=== PATIENT | male | born 1950 | race Caucasian/White ===

== ENCOUNTER 2017-11-04 09:33 | Emergency (ER) | payer MEDICARE, BC ==
[2017-11-04] MEDS ORDERED: Sodium Chloride 0.9% 10 ML Syringe FLUSH PRN (09:42)
[2017-11-04] MEDS ORDERED: Aspirin 81 MG Tab.Chew PO ONE (09:42)
--- NOTE | 2017-11-04 09:50 | EDM.PDOC ---
ED HPI GENERAL MEDICAL PROBLEM - General Chief Complaint: Chest Pain Stated Complaint: HIGH BP/CHEST PAIN Time Seen by Provider: 11/04/17 09:37 Source of Information: Reports: Patient History Limitations: Reports: No Limitations - History of Present Illness INITIAL COMMENTS - FREE TEXT/NARRATIVE: The patient presents with chest tightness. This started yesterday. He says it comes and goes. He has no shortness of breath with it. He was nauseated today. He has no fever, chills, cough, or abdominal pain. He has no history of heart problems. He does have a family history of heart problems. He says taking a deep breath makes it worse. He has no history of diabetes or hypercholesterolemia. He does have a history of HTN for which he is being treated. He does not smoke. Onset: Gradual Duration: Day(s): (Yesterday) Location: Reports: Chest Quality: Reports: Other (Tightness) Severity: Mild Improves with: Reports: None Worsens with: Reports: Breathing Associated Symptoms: Reports: Chest Pain. Denies: Cough, Diaphoresis, Fever/ Chills, Headaches, Nausea/Vomiting, Shortness of Breath Mid-Sternal Chest Pain Score (Numeric/FACES): 2 - Related Data Allergies Allergy/AdvReac Type Severity Reaction Status Date / Time No Known Allergies Allergy Verified 11/04/17 09:46 Home Meds: Home Meds Aspirin [Halfprin] 81 mg PO DAILY 11/04/17 [History] Losartan/Hydrochlorothiazide [Hyzaar 100-25 Tablet] 1 tab PO DAILY 11/04/17 [ History] Pravastatin Sodium [Pravastatin (Pravachol)] 20 mg PO DAILY 11/04/17 [History] Vit C/Vit E Ac/Lut/Mineral 1 [Prosight with Lutein] 1 each PO DAILY 11/04/17 [ History] amLODIPine Besylate [Norvasc] 2.5 mg PO DAILY 11/04/17 [History] Past Medical History Cardiovascular History: Reports: High Cholesterol, Hypertension Musculoskeletal History: Reports: Back Pain, Chronic, Other (See Below) Other Musculoskeletal History: pt has been seeing a pain specialist for injections - Infectious Disease History Infectious Disease History: Reports: Chicken Pox, Measles - Past Surgical History GI Surgical History: Reports: Hernia, Inguinal, Hernia Repair/Other Social & Family History - Living Situation & Occupation Living situation: Reports: Occupation: Employed ED ROS GENERAL - Review of Systems Review Of Systems: See Below Constitutional: Reports: No Symptoms HEENT: Reports: No Symptoms Respiratory: Reports: No Symptoms Cardiovascular: Reports: Chest Pain Endocrine: Reports: No Symptoms GI/Abdominal: Reports: Nausea. Denies: Abdominal Pain, Diarrhea, Vomiting : Reports: No Symptoms Musculoskeletal: Reports: No Symptoms ED EXAM, GENERAL - Physical Exam Exam: See Below Exam Limited By: No Limitations General Appearance: Alert, No Apparent Distress Ears: Normal External Exam Nose: Normal Inspection Head: Atraumatic, Normocephalic Neck: Normal Inspection Respiratory/Chest: No Respiratory Distress, Lungs Clear, Normal Breath Sounds Cardiovascular: Regular Rate, Rhythm, No Edema, No Murmur GI/Abdominal: Soft, Non-Tender, No Organomegaly, No Mass Back Exam: Normal Inspection Extremities: Normal Inspection EKG INTERPRETATION EKG Date: 11/04/17 Time: 09:38 Rhythm: NSR Rate (Beats/Min): 80 [place]: Normal P-Wave: Present QRS: Normal ST-T: Other (Flattened T waves in the inferior leads) QT: Normal [place]/PQ Interval: 1st degree HB Course - Vital Signs Last Recorded V/S: Last Vital Signs Temp 97.2 F 11/04/17 09:39 Pulse 84 11/04/17 09:39 Resp 15 11/04/17 09:39 BP 152/89 H 11/04/17 09:39 Pulse Ox 99 11/04/17 09:39 - Orders/Labs/Meds Orders: Active Orders 24 hr Category Date Time Status Cardiac Monitoring [RC] . DIRECTED Care 11/04/17 09:42 Active EKG Documentation Completion [RC] STAT Care 11/04/17 09:43 Active Oxygen Therapy [RC] PRN Care 11/04/17 09:42 Active Peripheral IV Care [RC] . DIRECTED Care 11/04/17 09:43 Active Chest 1V Frontal [CR] Stat Exams 11/04/17 09:43 Taken Sodium Chloride 0.9% [Saline Flush] Med 11/04/17 09:42 Active 10 ml FLUSH ASDIRECTED PRN Peripheral IV Insertion Adult [OM.PC] Stat Oth 11/04/17 09:42 Ordered Medication Orders Sodium Chloride (Saline Flush) 10 ml FLUSH ASDIRECTED PRN PRN Reason: Keep Vein Open Last Admin: 11/04/17 09:58 Dose: 10 ml Labs: Laboratory Tests 11/04/17 11/04/17 11/04/17 Range/Units 09:45 09:45 09:45 WBC 6.32 (4.23-9.07) K/mm3 RBC 4.85 (4.63-6.08) M/mm3 Hgb 13.9 (13.7-17.5) gm/L Hct 41.7 (40.1-51.0) % MCV 86.0 (79.0-92.2) fl MCH 28.7 (25.7-32.2) pg MCHC 33.3 (32.2-35.5) g/dl RDW Std Deviation 42.6 (35.1-43.9) fL Plt Count 283 (163-337) K/mm3 MPV 9.8 (9.4-12.3) fl Neut % (Auto) 61.9 (34.0-67.9) % Lymph % (Auto) 22.9 (21.8-53.1) % [place] % (Auto) 10.9 (5.3-12.2) % Eos % (Auto) 3.5 (0.8-7.0) Baso % (Auto) 0.6 (0.1-1.2) % Neut # (Auto) 3.91 (1.78-5.38) K/mm3 Lymph # (Auto) 1.45 (1.32-3.57) K/mm3 [place] # (Auto) 0.69 (0.30-0.82) K/mm3 Eos # (Auto) 0.22 (0.04-0.54) K/mm3 Baso # (Auto) 0.04 (0.01-0.08) K/mm3 D-Dimer, Quantitative 0.38 (0.19-0.50) mg/L Sodium 140 (136-145) mEq/L Potassium 3.6 (3.5-5.1) mEq/L Chloride 105 (98-107) mEq/L Carbon Dioxide 29 (21-32) mEq/L Anion Gap 9.6 (5-15) BUN 17 (7-18) mg/dL Creatinine 1.0 (0.7-1.3) mg/dL Est Cr Clr Drug Dosing 82.12 mL/min Estimated GFR (MDRD) > 60 (>60) mL/min BUN/Creatinine Ratio 17.0 (14-18) Glucose 103 (80-115) mg/dL Calcium 9.7 (8.5-10.1) mg/dL Total Bilirubin 0.6 (0.2-1.0) mg/dL AST 16 (15-37) U/L ALT 27 (16-63) U/L Alkaline Phosphatase 83 (46-116) U/L Troponin I < 0.017 (0.00-0.056) ng/mL Total Protein 7.4 (6.4-8.2) g/dl Albumin 3.8 (3.4-5.0) g/dl Globulin 3.6 gm/dL Albumin/Globulin Ratio 1.1 (1-2) Meds: Medications Generic Name Dose Route Start Last Admin Trade Name Freq PRN Reason Stop Dose Admin Sodium Chloride 10 ml 11/04/17 09:42 11/04/17 09:58 Saline Flush FLUSH 10 ml ASDIRECTED PRN Administration Keep Vein Open Discontinued Medications Generic Name Dose Route Start Last Admin Trade Name Freq PRN Reason Stop Dose Admin Aspirin 324 mg 11/04/17 09:42 11/04/17 09:58 Aspirin PO 11/04/17 09:43 324 mg ONETIME ONE Administration - Re-Assessments/Exams Free Text/Narrative Re-Assessment/Exam: 11/04/17 09:52 I ordered an IV saline lock, EKG, CXR, labs and aspirin. 11/04/17 11:19 His EKG shows a NSR with a 1st degree HB and no acute changes. His CBC and CMP look good. His troponin is negative. He feels better. It appears this is pleurisy. His heart looks good. Departure - Departure Time of Disposition: 11:25 Disposition: Home, Self-Care 01 Condition: Good Clinical Impression: Atypical chest pain Referrals: Daniel San MD [Primary Care Provider] - 1 Week Forms: ED Department Discharge Additional Instructions: Take aspirin or motrin for the pain. Follow up with Dr Pritchett in 1 week. Please return if you are worse. - My Orders Last 24 Hours: My Active Orders 11/04/17 09:42 Cardiac Monitoring [RC] . DIRECTED Oxygen Therapy [RC] PRN Sodium Chloride 0.9% [Saline Flush] 10 ml FLUSH ASDIRECTED PRN Peripheral IV Insertion Adult [OM.PC] Stat 11/04/17 09:43 EKG Documentation Completion [RC] STAT Peripheral IV Care [RC] . DIRECTED Chest 1V Frontal [CR] Stat - Assessment/Plan Last 24 Hours: My Active Orders 11/04/17 09:42 Cardiac Monitoring [RC] . DIRECTED Oxygen Therapy [RC] PRN Sodium Chloride 0.9% [Saline Flush] 10 ml FLUSH ASDIRECTED PRN Peripheral IV Insertion Adult [OM.PC] Stat 11/04/17 09:43 EKG Documentation Completion [RC] STAT Peripheral IV Care [RC] . DIRECTED Chest 1V Frontal [CR] Stat
[2017-11-04 11:36] VITALS: BP 133/79
--- NOTE | 2017-11-06 11:27 | CR ---
Chest: Portable view of the chest was obtained. Comparison: No prior chest x-ray. Blunting of the right costophrenic angle is seen. Without old study uncertain if this is chronic or due to mild atelectasis. Lungs otherwise are clear. Right hemidiaphragm is elevated which is most likely chronic. No acute parenchymal densities are seen. No acute bony abnormality is seen. Slight scoliosis and degenerative spurring is noted within the spine. Impression: 1. Findings felt to be incidental as described above. Nothing acute is suspected. Diagnostic code #2
== END 2017-11-04 11:34 | disposition home or self-care (01) ==
LOC: JD.ED 09:33
DX: R07.89 Other chest pain (principal); E78.00 Pure hypercholesterolemia, unspecified; I10 Essential (primary) hypertension; Z79.82 Long term (current) use of aspirin; Z79.899 Other long term (current) drug therapy
CPT/HCPCS: 36415; 71045; 80053; 84484; 85025; 85379; 93005; 99285; A9270; J7050; 93010; 99284

== ENCOUNTER 2020-08-13 07:25 | Day surgery (SDC) | payer MEDICARE, BC ==
[2020-08-13] MEDS: Polymyxin B/Trimethoprim 10 ML Bottle EYERT SCH ×4 (07:44→09:03)
[2020-08-13] MEDS: Brimonidine 0.2% Ophth Soln 5 ML Bottle EYERT SCH ×4 (07:48→09:03)
[2020-08-13] MEDS: Phenylephrine 2.5% Ophth Soln 2 ML Bot EYERT SCH ×6 (07:51→08:44)
--- NOTE | 2020-08-13 07:52 | PCM.PREANE ---
Preanesthetic Assessment - Procedure Proposed Procedure: cataract extraction right eye - Anesthesia/Transfusion/Family Hx Anesthesia History: Prior Anesthesia Without Reaction Family History of Anesthesia Reaction: No Transfusion History: No Prior Transfusion(s) - Review of Systems General: No Symptoms Pulmonary: No Symptoms Cardiovascular: No Symptoms Gastrointestinal: No Symptoms Neurological: No Symptoms Other: Reports: None - Physical Assessment NPO Status Date: 08/12/20 NPO Status Time: 00:00 Height: 1.85 m Weight: 117.934 kg ASA Class: 2 Mental Status: Alert & Oriented x3 Airway Class: Mallampati = 1 Dentition: Reports: Normal Dentition Thyro-Mental Finger Breadths: 3 Mouth Opening Finger Breadths: 3 ROM/Head Extension: Full Lungs: Clear to Auscultation, Normal Respiratory Effort Cardiovascular: Regular Rate, Regular Rhythm - Allergies Allergies/Adverse Reactions: Allergies Allergy/AdvReac Type Severity Reaction Status Date / Time No Known Allergies Allergy Verified 08/12/20 12:50 - Anesthesia Plan Pre-Op Medication Ordered: None - Acknowledgements Anesthesia Type Planned: MAC Pt an Appropriate Candidate for the Planned Anesthesia: Yes Alternatives and Risks of Anesthesia Discussed w Pt/Guardian: Yes Pt/Guardian Understands and Agrees with Anesthesia Plan: Yes PreAnesthesia Questionnaire Cardiovascular History: Reports: High Cholesterol, Hypertension Musculoskeletal History: Reports: Back Pain, Chronic, Other (See Below) Other Musculoskeletal History: pt has been seeing a pain specialist for injections - Infectious Disease History Infectious Disease History: Reports: Chicken Pox, Measles - Past Surgical History GI Surgical History: Reports: Hernia, Inguinal, Hernia Repair/Other - HOME MEDS Home Medications: Home Meds Aspirin [Halfprin] 81 mg PO DAILY 11/04/17 [History] Losartan/Hydrochlorothiazide [Hyzaar 100-25 Tablet] 1 tab PO DAILY 11/04/17 [History] Pravastatin Sodium [Pravastatin (Pravachol)] 20 mg PO DAILY 11/04/17 [History] Vit C/Vit E/Lutein/Minerals 1 [Prosight with Lutein] 1 each PO DAILY 11/04/17 [History] amLODIPine Besylate [Norvasc] 2.5 mg PO DAILY 11/04/17 [History] - CURRENT (IN HOUSE) MEDS Current Meds: Current Medications Brimonidine Tartrate (Brimonidine 0.2% Ophth Soln 5 Ml Bottle) 0 ml EYERT ASDIRECTED TAMIKO Stop: 08/13/20 18:00 Last Admin: 08/13/20 07:48 Dose: 1 drop Documented by: Cefuroxime Sodium (Cefuroxime 10 Mg/Ml Syringe) 0 mg EYERT ASDIRECTED TAMIKO Stop: 08/13/20 18:00 Lidocaine HCl (Lidocaine 1% Pf 2 Ml Sdv) 0 ml INJECT ASDIRECTED TAMIKO Stop: 08/13/20 18:00 Phenylephrine HCl (Phenylephrine 2.5% Ophth Soln 2 Ml Bot) 0 ml EYERT ASDIRECTED TAMIKO Stop: 08/13/20 18:00 Pilocarpine HCl (Pilocarpine 4% Ophth Soln 15 Ml Bot) 0 ml EYERT ASDIRECTED TAMIKO Stop: 08/13/20 18:00 Polymyxin/Trimethoprim Sulfate (Polymyxin B/Trimethoprim 10 Ml Bottle) 0 ml EYERT ASDIRECTED TAMIKO Stop: 08/13/20 18:00 Last Admin: 08/13/20 07:44 Dose: 1 drop Documented by: Tetracaine HCl (Tetracaine Hcl/Pf 0.5% 4 Ml Bottle) 0 ml EYEBOTH ASDIRECTED TAMIKO Stop: 08/13/20 18:00 Tropicamide (Tropicamide 1% Ophth Soln 15 Ml Bottle) 0 ml EYERT ASDIRECTED TAMIKO Stop: 08/13/20 18:00
[2020-08-13] MEDS: Tropicamide 1% Ophth Soln 15 ML Bottle EYERT SCH ×4 (07:54→08:25)
[2020-08-13] MEDS: Tetracaine HCl/PF 0.5% 4 ML Bottle EYEBOTH SCH ×5 (08:27→08:49)
[2020-08-13] MEDS: Lidocaine 1% PF 2 ML SDV INJECT SCH ×2 (08:27→08:50)
[2020-08-13] MEDS: Pilocarpine 4% Ophth Soln 15 ML Bot EYERT SCH ×2 (08:28→09:03)
[2020-08-13] MEDS: Cefuroxime 10 MG/ML SYRINGE EYERT SCH ×2 (08:28→09:02)
--- NOTE | 2020-08-13 09:07 | PCM48HPAN ---
Post Anesthesia Note - EVALUATION WITHIN 48HRS OF ANESTHETIC Vital Signs in Normal Range: Yes Patient Participated in Evaluation: Yes Respiratory Function Stable: Yes Airway Patent: Yes Cardiovascular Function Stable: Yes Hydration Status Stable: Yes Pain Control Satisfactory: Yes Nausea and Vomiting Control Satisfactory: Yes Mental Status Recovered: Yes Vital Signs: Last Vital Signs Temp 36.8 C 08/13/20 07:20 Pulse 91 08/13/20 07:20 Resp 20 08/13/20 07:20 BP 166/83 H 08/13/20 07:20 Pulse Ox 97 08/13/20 07:20
[2020-08-13 09:33] VITALS: BP 150/84; PULSE 77
== END 2020-08-13 09:13 | disposition home or self-care (01) ==
LOC: JD.SDS 07:25
PROVIDERS: ATTEND Ophthalmology
DX: H25.813 Combined forms of age-related cataract, bilateral (principal); H17.12 Central corneal opacity, left eye; D31.32 Benign neoplasm of left choroid; H35.372 Puckering of macula, left eye; H50.112 Monocular exotropia, left eye; H02.831 Dermatochalasis of right upper eyelid; H02.834 Dermatochalasis of left upper eyelid; H16.223 Keratoconjunctivitis sicca, not specified as Sjogren's, bilateral; H57.813 Brow ptosis, bilateral; I10 Essential (primary) hypertension; E78.00 Pure hypercholesterolemia, unspecified; Z98.890 Other specified postprocedural states
CPT/HCPCS: 66984; J0697; C1780

== ENCOUNTER 2020-09-15 09:59 | Day surgery (SDC) | payer MEDICARE, BC ==
[~2020-09-15 09:59] MED LIST: Cefuroxime 10 MG/ML SYRINGE EYELF SCH; Lidocaine 1% PF 2 ML SDV INJECT SCH; Pilocarpine 4% Ophth Soln 15 ML Bot EYELF SCH
[2020-09-15] MEDS: Polymyxin B/Trimethoprim 10 ML Bottle EYELF SCH ×3 (10:27→12:08)
[2020-09-15] MEDS: Brimonidine 0.2% Ophth Soln 5 ML Bottle EYELF SCH ×3 (10:30→12:08)
[2020-09-15] MEDS: Phenylephrine 2.5% Ophth Soln 2 ML Bot EYELF SCH ×5 (10:34→11:49)
[2020-09-15] MEDS: Tropicamide 1% Ophth Soln 15 ML Bottle EYELF SCH ×4 (10:38→11:26)
--- NOTE | 2020-09-15 10:58 | PCM.PREANE ---
Preanesthetic Assessment - Procedure Proposed Procedure: Left Eye Cataract Extraction with IOL - Anesthesia/Transfusion/Family Hx Anesthesia History: Prior Anesthesia Without Reaction Family History of Anesthesia Reaction: No Transfusion History: No Prior Transfusion(s) - Review of Systems General: No Symptoms Pulmonary: No Symptoms Cardiovascular: No Symptoms Gastrointestinal: No Symptoms Neurological: Pre-Existing Deficit (Back surgery, continued pain in right leg. ) Other: Reports: None - Physical Assessment NPO Status Date: 09/14/20 NPO Status Time: 22:00 Height: 1.85 m Weight: 117.934 kg ASA Class: 2 Mental Status: Alert & Oriented x3 Airway Class: Mallampati = 1 Dentition: Reports: Normal Dentition, [place] Thyro-Mental Finger Breadths: 3 Mouth Opening Finger Breadths: 3 ROM/Head Extension: Full Lungs: Clear to Auscultation, Normal Respiratory Effort Cardiovascular: Regular Rate, Regular Rhythm - Allergies Allergies/Adverse Reactions: Allergies Allergy/AdvReac Type Severity Reaction Status Date / Time No Known Allergies Allergy Verified 09/14/20 15:42 - Acknowledgements Anesthesia Type Planned: MAC Pt an Appropriate Candidate for the Planned Anesthesia: Yes Alternatives and Risks of Anesthesia Discussed w Pt/Guardian: Yes Pt/Guardian Understands and Agrees with Anesthesia Plan: Yes PreAnesthesia Questionnaire Cardiovascular History: Reports: High Cholesterol, Hypertension Musculoskeletal History: Reports: Back Pain, Chronic, Other (See Below) Other Musculoskeletal History: pt has been seeing a pain specialist for injections - Infectious Disease History Infectious Disease History: Reports: Chicken Pox, Measles - Past Surgical History GI Surgical History: Reports: Hernia, Inguinal, Hernia Repair/Other - HOME MEDS Home Medications: Home Meds Aspirin [Halfprin] 81 mg PO DAILY 11/04/17 [History] Losartan/Hydrochlorothiazide [Hyzaar 100-25 Tablet] 1 tab PO DAILY 11/04/17 [History] Pravastatin Sodium [Pravastatin (Pravachol)] 20 mg PO DAILY 11/04/17 [History] Vit C/Vit E/Lutein/Minerals 1 [Prosight with Lutein] 1 each PO DAILY 11/04/17 [History] amLODIPine Besylate [Norvasc] 2.5 mg PO DAILY 11/04/17 [History] - CURRENT (IN HOUSE) MEDS Current Meds: Current Medications Brimonidine Tartrate (Brimonidine 0.2% Oph Soln 5 Ml Bottle) 0 ml EYELF A SDIRECTED TAMIKO Stop: 09/15/20 18:00 Last Admin: 09/15/20 10:30 Dose: 1 drop Documented by: Cefuroxime Sodium (Cefuroxime 10 Mg/Ml Syringe) 0 mg EYELF ASDIRECTED TAMIKO Stop: 09/15/20 18:00 Lidocaine HCl (Lidocaine 1% Pf 2 Ml Sdv) 0 ml INJECT ASDIRECTED TAMIKO Stop: 09/15/20 18:00 Phenylephrine HCl (Phenylephrine 2.5% Ophth Soln 2 Ml Bot) 0 ml EYELF ASDIRECTED TAMIKO Stop: 09/15/20 18:00 Last Admin: 09/15/20 10:52 Dose: 1 drop Documented by: Pilocarpine HCl (Pilocarpine 4% Ophth Soln 15 Ml Bot) 0 ml EYELF ASDIRECTED TAMIKO Stop: 09/15/20 18:00 Polymyxin/Trimethoprim Sulfate (Polymyxin B/Trimethoprim 10 Ml Bottle) 0 ml EYELF ASDIRECTED TAMIKO Stop: 09/15/20 18:00 Last Admin: 09/15/20 10:27 Dose: 1 drop Documented by: Tetracaine HCl (Tetracaine Hcl/Pf 0.5% 4 Ml Bottle) 0 ml EYEBOTH ASDIRECTED TAMIKO Stop: 09/15/20 18:00 Tropicamide (Tropicamide 1% Ophth Soln 15 Ml Bottle) 0 ml EYELF ASDIRECTED TAMIKO Stop: 09/15/20 18:00 Last Admin: 09/15/20 10:48 Dose: 1 drop Documented by:
[2020-09-15] MEDS: Tetracaine HCl/PF 0.5% 4 ML Bottle EYEBOTH SCH ×2 (11:43→12:01)
--- NOTE | 2020-09-15 12:09 | PCM48HPAN ---
Post Anesthesia Note - EVALUATION WITHIN 48HRS OF ANESTHETIC Vital Signs in Normal Range: Yes Patient Participated in Evaluation: Yes Respiratory Function Stable: Yes Airway Patent: Yes Cardiovascular Function Stable: Yes Hydration Status Stable: Yes Pain Control Satisfactory: Yes Nausea and Vomiting Control Satisfactory: Yes Mental Status Recovered: Yes
[2020-09-15 12:25] VITALS: BP 143/85; PULSE 71
== END 2020-09-15 12:19 | disposition home or self-care (01) ==
LOC: JD.SDS 09:59
PROVIDERS: ATTEND Ophthalmology
DX: H25.812 Combined forms of age-related cataract, left eye (principal); E78.00 Pure hypercholesterolemia, unspecified; I10 Essential (primary) hypertension; Z98.890 Other specified postprocedural states; Z79.899 Other long term (current) drug therapy; Z79.82 Long term (current) use of aspirin
CPT/HCPCS: 66984; C1780; J0697

== ENCOUNTER 2021-04-21 00:29 | Emergency (ER) | payer MEDICARE, BC ==
--- NOTE | 2021-04-21 00:45 | EDM.PDOC ---
ED HPI GENERAL MEDICAL PROBLEM - General Chief Complaint: Chest Pain Stated Complaint: CHEST PAIN/HIGH BP Time Seen by Provider: 04/21/21 00:45 Source of Information: Reports: Patient History Limitations: Reports: No Limitations - History of Present Illness INITIAL COMMENTS - FREE TEXT/NARRATIVE: Patient is a 70-year-old male presenting with a chief complaint of palpitations. Patient reports over the past week he has had several episodes of chest pain. He states the chest pain lasted for a few seconds to a few minutes. It is located substernally and without radiation. He denies any shortness of breath with the symptoms and has not noticed any precipitating factors. They do seem to resolve spontaneously. Today, the patient had onset of palpitations which did not resolve. This is associated with some slight chest discomfort. Otherwise, he denies any dizziness, lightheadedness, shortness of breath, nausea, vomiting, recent illnesses. Chest Pain Score (Numeric/FACES): 4 - Related Data Allergies Allergy/AdvReac Type Severity Reaction Status Date / Time No Known Allergies Allergy Verified 04/21/21 00:52 Home Meds: Home Meds Aspirin [Halfprin] 81 mg PO DAILY 11/04/17 [History] Losartan/Hydrochlorothiazide [Hyzaar 100-25 Tablet] 1 tab PO DAILY 11/04/17 [History] Pravastatin Sodium [Pravastatin (Pravachol)] 20 mg PO DAILY 11/04/17 [History] Vit C/Vit E/Lutein/Minerals 1 [Prosight with Lutein] 1 each PO DAILY 11/04/17 [History] amLODIPine Besylate [Norvasc] 2.5 mg PO DAILY 11/04/17 [History] Diltiazem IR [Cardizem] 30 mg PO Q6H #28 tab 04/21/21 [Rx] Rivaroxaban [Xarelto] 20 mg PO DAILY #10 tablet 04/21/21 [Rx] Past Medical History Cardiovascular History: Reports: High Cholesterol, Hypertension Musculoskeletal History: Reports: Back Pain, Chronic, Other (See Below) Other Musculoskeletal History: pt has been seeing a pain specialist for injections - Infectious Disease History Infectious Disease History: Reports: Chicken Pox, Measles - Past Surgical History GI Surgical History: Reports: Hernia, Inguinal, Hernia Repair/Other Social & Family History - Family History Cardiac: Reports: [place] - Caffeine Use Caffeine Use: Reports: Soda - Living Situation & Occupation Living situation: Reports: Occupation: Employed ED ROS GENERAL - Review of Systems Review Of Systems: See Below Free Text/Narrative/Comment: In addition to that documented in the HPI above, the additional ROS was obtained: Constitutional: Denies fevers or chills Eyes: Denies vision changes ENMT: Denies sore throat CV: Per HPI Resp: Denies SOB GI: Denies vomiting or diarrhea : Denies painful urination MSK: Denies recent trauma Skin: Denies new rashes Neuro: Denies new numbness or tingling or weakness Endocrine: Denies unexpected weight loss Heme: Denies bleeding disorders ED EXAM, GENERAL - Physical Exam Exam: See Below Free Text/Narrative:: I have reviewed the triage vital signs Const: Well nourished, well developed, appears stated age Eyes: Pupils Equal and reactive to light bilaterally, no conjunctival injection HENT: No signs of trauma or swelling, Neck supple without meningismus CV: Tachycardia with irregular rhythm, well-perfused extremities RESP: Unlabored respiratory effort GI: soft, non-tender, non-distended, no masses MSK: No gross deformities appreciated Skin: Warm, dry. No rashes Neuro: Alert, cad designer II-XII grossly intact. Sensation and motor function of extremities grossly intact. Psych: Appropriate mood and affect. #1 Interpretation EKG Date: 04/21/21 Time: 00:35 Rhythm: A-Fib Rate (Beats/Min): 143 Harmony: Normal P-Wave: Absent QRS: Normal ST-T: Depressed (Slight ST depression in lateral leads) QT: Normal Comparison: Change From Previous EKG EKG Interpretation Comments: Atrial fibrillation with ST depression in lateral leads. Abnormal EKG Course - Vital Signs Last Recorded V/S: Last Vital Signs Temp 36.6 C 04/21/21 00:46 Pulse 108 H 04/21/21 03:46 Resp 18 04/21/21 03:46 BP 122/76 04/21/21 03:46 Pulse Ox 100 04/21/21 03:46 - Orders/Labs/Meds Orders: Active Orders 24 hr Category Date Time Status Chest 1V Frontal [CR] Stat Exams 04/21/21 00:41 Taken Labs: Laboratory Tests 04/21/21 04/21/21 04/21/21 Range/Units 00:40 00:40 00:40 WBC 8.16 (4.23-9.07) K/mm3 RBC 5.24 (4.63-6.08) M/mm3 Hgb 15.0 (13.7-17.5) gm/dl Hct 45.5 (40.1-51.0) % MCV 86.8 (79.0-92.2) fl MCH 28.6 (25.7-32.2) pg MCHC 33.0 (32.2-35.5) g/dl RDW Std Deviation 43.8 (35.1-43.9) fL Plt Count 298 (163-337) K/mm3 MPV 9.7 (9.4-12.3) fl Neut % (Auto) 41.8 (34.0-67.9) % Lymph % (Auto) 39.2 (21.8-53.1) % Josephine % (Auto) 13.4 H (5.3-12.2) % Eos % (Auto) 4.9 (0.8-7.0) Baso % (Auto) 0.6 (0.1-1.2) % Neut # (Auto) 3.41 (1.78-5.38) K/mm3 Lymph # (Auto) 3.20 (1.32-3.57) K/mm3 Josephine # (Auto) 1.09 H (0.30-0.82) K/mm3 Eos # (Auto) 0.40 (0.04-0.54) K/mm3 Baso # (Auto) 0.05 (0.01-0.08) K/mm3 PT 9.8 (9.7-12.0) SECONDS INR < 0.93 D-Dimer, Quantitative (0.19-0.50) mg/L Sodium 139 (136-145) mEq/L Potassium 3.2 L (3.5-5.1) mEq/L Chloride 101 (98-107) mEq/L Carbon Dioxide 32 (21-32) mEq/L Anion Gap 9.2 (5-15) BUN 18 (7-18) mg/dL Creatinine 1.0 (0.7-1.3) mg/dL Est Cr Clr Drug Dosing 78.79 mL/min Estimated GFR (MDRD) > 60 (>60) mL/min BUN/Creatinine Ratio 18.0 (14-18) Glucose 100 H (70-99) mg/dL Calcium 9.8 (8.5-10.1) mg/dL Total Bilirubin 0.4 (0.2-1.0) mg/dL AST 26 (15-37) U/L ALT 28 (16-63) U/L Alkaline Phosphatase 95 (46-116) U/L Troponin I < 0.017 (0.00-0.056) ng/mL NT-Pro-B Natriuret Pep (0-125) pg/mL Total Protein 7.8 (6.4-8.2) g/dl Albumin 4.2 (3.4-5.0) g/dl Globulin 3.6 gm/dL Albumin/Globulin Ratio 1.2 (1-2) 04/21/21 04/21/21 04/21/21 Range/Units 00:40 00:40 02:59 WBC (4.23-9.07) K/mm3 RBC (4.63-6.08) M/mm3 Hgb (13.7-17.5) gm/dl Hct (40.1-51.0) % MCV (79.0-92.2) fl MCH (25.7-32.2) pg MCHC (32.2-35.5) g/dl RDW Std Deviation (35.1-43.9) fL Plt Count (163-337) K/mm3 MPV (9.4-12.3) fl Neut % (Auto) (34.0-67.9) % Lymph % (Auto) (21.8-53.1) % Josephine % (Auto) (5.3-12.2) % Eos % (Auto) (0.8-7.0) Baso % (Auto) (0.1-1.2) % Neut # (Auto) (1.78-5.38) K/mm3 Lymph # (Auto) (1.32-3.57) K/mm3 Josephine # (Auto) (0.30-0.82) K/mm3 Eos # (Auto) (0.04-0.54) K/mm3 Baso # (Auto) (0.01-0.08) K/mm3 PT (9.7-12.0) SECONDS INR D-Dimer, Quantitative 0.35 (0.19-0.50) mg/L Sodium (136-145) mEq/L Potassium (3.5-5.1) mEq/L Chloride (98-107) mEq/L Carbon Dioxide (21-32) mEq/L Anion Gap (5-15) BUN (7-18) mg/dL Creatinine (0.7-1.3) mg/dL Est Cr Clr Drug Dosing mL/min Estimated GFR (MDRD) (>60) mL/min BUN/Creatinine Ratio (14-18) Glucose (70-99) mg/dL Calcium (8.5-10.1) mg/dL Total Bilirubin (0.2-1.0) mg/dL AST (15-37) U/L ALT (16-63) U/L Alkaline Phosphatase (46-116) U/L Troponin I < 0.017 (0.00-0.056) ng/mL NT-Pro-B Natriuret Pep 46 (0-125) pg/mL Total Protein (6.4-8.2) g/dl Albumin (3.4-5.0) g/dl Globulin gm/dL Albumin/Globulin Ratio (1-2) Meds: Medications Discontinued Medications Generic Name Dose Route Start Last Admin Trade Name Freq PRN Reason Stop Dose Admin Diltiazem HCl 30 mg 04/21/21 01:22 04/21/21 01:41 Diltiazem Ir 30 Mg Tab PO 04/21/21 01:23 30 mg ONETIME ONE Administration Diltiazem HCl 20 mg 04/21/21 01:22 04/21/21 01:40 Diltiazem 50 Mg/10 Ml Sdv IVPUSH 04/21/21 01:23 20 mg ONETIME ONE Administration Lactated Ringer's 1,000 mls @ 1,000 mls/hr 04/21/21 01:17 04/21/21 01:30 Ringers, Lactated IV 04/21/21 02:16 1,000 mls/hr .BOLUS ONE Administration Rivaroxaban 20 mg 04/21/21 01:22 04/21/21 01:41 Rivaroxaban 10 Mg Tab PO 04/21/21 01:23 20 mg ONETIME ONE Administration Departure - Departure Time of Disposition: 03:48 Disposition: Home, Self-Care 01 Clinical Impression: Atrial fibrillation Prescriptions: Diltiazem IR [Cardizem] 30 mg PO Q6H #28 tab Rivaroxaban [Xarelto] 20 mg PO DAILY #10 tablet Instructions: Bleeding Precautions When on Anticoagulant Therapy, Pediatric, Nonspecific Chest Pain, Adult, [id number], Atrial Fibrillation, [id number] Referrals: Daniel San MD [Primary Care Provider] - Forms: ED Department Discharge Sepsis Event Note (ED) - Focused Exam Vital Signs: Vital Signs Temp Pulse Resp BP Pulse Ox 04/21/21 03:46 108 H 18 122/76 100 04/21/21 00:46 36.6 C 148 H 16 120/88 97 - My Orders Last 24 Hours: My Active Orders 04/21/21 00:41 Chest 1V Frontal [CR] Stat - Assessment/Plan Last 24 Hours: My Active Orders 04/21/21 00:41 Chest 1V Frontal [CR] Stat Assessment:: Patient is a 70-year-old male presenting to the emergency room with a complaint of palpitations. On arrival, patient was found to be in atrial fibrillation with a rate in the 130s. He was otherwise hemodynamically stable. Due to the intermittent symptoms for the past 1 week, is elected to go with rate control as opposed to electrical cardioversion. Rate control was achieved with IV diltiazem as well as p.o. diltiazem. His heart rate improved nicely into the low 80s while maintaining a normal blood pressure. No evidence of significant electrolyte abnormality, PE, ACS in this patient. His initial EKG demonstrates some slight ST depression but this is likely rate dependent as repeat EKG once his rate control demonstrates no evidence of ischemic changes. I did recommend close follow-up with primary care and cardiology. In addition, patient has a [id number] score of 2 and will be initiated on Xarelto for anticoagulation purposes. All questions were addressed and answered. Patient agrees with plan of care.
[2021-04-21] MEDS ORDERED: Lactated Ringers 1,000 ML IV ONE (01:17)
[2021-04-21] MEDS ORDERED: Diltiazem IR 30 MG Tab PO ONE (01:22)
[2021-04-21] MEDS ORDERED: Rivaroxaban 10 MG Tab PO ONE (01:22)
[2021-04-21] MEDS ORDERED: Diltiazem 50 MG/10 ML SDV IVPUSH ONE (01:22)
[2021-04-21 03:46] VITALS: BP 122/76; PULSE 108
--- NOTE | 2021-04-21 07:31 | CR ---
Chest: Portable view of the chest was obtained. Comparison: Prior chest x-ray of 11/04/17. Stable blunting of the lateral right costophrenic angle is seen. Lungs otherwise are clear. Heart size and mediastinum are within normal limits. Slight deformity is seen to the right seventh rib which is felt to be old. Impression: 1. Stable findings as described above. 2. Nothing acute is seen on portable chest x-ray. Diagnostic code #2
== END 2021-04-21 03:51 | disposition home or self-care (01) ==
LOC: JD.ED 00:29
DX: I48.91 Unspecified atrial fibrillation (principal); I10 Essential (primary) hypertension; R94.31 Abnormal electrocardiogram [ECG] [EKG]; Z79.82 Long term (current) use of aspirin; Z79.01 Long term (current) use of anticoagulants; Z79.899 Other long term (current) drug therapy
CPT/HCPCS: 36415; 71045; 80053; 83880; 84484; 85025; 85379; 85610; 93005; 96374; 99285; A9270; J3490; J7120; 93010

== ENCOUNTER 2025-01-27 11:08 | Emergency (ER) | payer BC, MEDICARE ==
[2025-01-27 11:42] LABS: BASOPHILS ABSOLUTE AUTO 0.1 K/mm3 (0.0-0.2); BASOPHILS PERCENT AUTO 0.6 % (0.0-1.0); EOSINOPHILS ABSOLUTE AUTO 0.2 K/mm3 (0.0-0.4); EOSINOPHILS PERCENT AUTO 1.7 % (0.0-6.0); IMMATURE GRAN ABSOLUTE AUTO 0.03 K/mm3 (0.00-0.05); IMMATURE GRAN PERCENT AUTO 0.3 % (0.0-0.4); LYMPHOCYTES ABSOLUTE AUTO 1.7 K/mm3 (1.0-4.8); LYMPHOCYTES PERCENT AUTO 17.1 % (24.0-44.0); MEAN PLATELET VOLUME 10.0 fl (9.4-12.4); MONOCYTES ABSOLUTE AUTO 0.9 K/mm3 (0.0-0.8); MONOCYTES PERCENT AUTO 8.9 % (0.0-8.0); NEUTROPHILS ABSOLUTE AUTO 7.1 K/mm3 (1.8-7.7); NEUTROPHILS PERCENT AUTO 71.4 % (41.0-71.0); NRBC ABSOLUTE 0.00 (0.00-0.02); NRBC PERCENT 0.0 % (0.0-0.2); PLATELET COUNT,PLT 243 K/mm3 (150-400); RED BLOOD CELL COUNT 4.52 M/mm3 (4.52-5.90); WHITE BLOOD CELL COUNT,WBC 10.00 K/mm3 (3.9-11.3)
[2025-01-27 12:06] LABS: A/G RATIO 1.1 (1-2); ALANINE AMINOTRANSFERASE,ALT 24.0 U/L (16-63); ASPARTATE AMNIOTRANSFERASE,AST 17.0 U/L (15-37); BILIRUBIN TOTAL 0.6 mg/dL (0.2-1.0); BLOOD UREA NITROGEN,BUN 40.0 mg/dL (7-18); CARBON DIOXIDE,CO2 30.0 mEq/L (21-32); CHLORIDE,CL 103.0 mEq/L (98-107); CREATINE KINASE,CK 94.0 U/L (39-308); CREATININE 1.6 mg/dL (0.7-1.3); EST CRCL DRUG DOSING (CG) 47.81 mL/min; ESTIMATED GFR 45.0 mL/min (>60); GLUCOSE RANDOM 125.0 mg/dL (70-99); POTASSIUM,K 3.2 mEq/L (3.5-5.1); PROTEIN TOTAL,TP 6.8 g/dl (6.4-8.2); SODIUM,NA 142.0 mEq/L (136-145); TROPONIN I HIGH SENSITIVITY 5.0 pg/mL (<=76)
[2025-01-27] MEDS: Potassium Chloride 20 MEQ Tab.ER PO ONE (12:18)
[2025-01-27 12:48] VITALS: PULSE 73
[2025-01-27 14:46] VITALS: BP 119/68
== END 2025-01-27 14:40 | disposition home or self-care (01) ==
LOC: JD.ED 11:08
DX: E87.6 Hypokalemia (principal); E83.42 Hypomagnesemia; N28.9 Disorder of kidney and ureter, unspecified; I10 Essential (primary) hypertension; E78.00 Pure hypercholesterolemia, unspecified; Z79.82 Long term (current) use of aspirin; Z79.899 Other long term (current) drug therapy
CPT/HCPCS: 36415; 71045; 71045-26; 80053; 82550; 83690; 83735; 83880; 84484; 85025; 93005; 93010; 93246; 96365; 96368; 99284; 99285-25; A9270-GY; J3475; J3480; J7030

== ENCOUNTER 2025-01-30 13:21 | Emergency (ER) | payer MEDICARE ==
[2025-01-30 14:44] LABS: BASOPHILS ABSOLUTE AUTO 0.1 K/mm3 (0.0-0.2); BASOPHILS PERCENT AUTO 0.8 % (0.0-1.0); EOSINOPHILS ABSOLUTE AUTO 0.3 K/mm3 (0.0-0.4); EOSINOPHILS PERCENT AUTO 3.3 % (0.0-6.0); IMMATURE GRAN ABSOLUTE AUTO 0.02 K/mm3 (0.00-0.05); IMMATURE GRAN PERCENT AUTO 0.3 % (0.0-0.4); LYMPHOCYTES ABSOLUTE AUTO 1.2 K/mm3 (1.0-4.8); LYMPHOCYTES PERCENT AUTO 16.1 % (24.0-44.0); MEAN PLATELET VOLUME 9.9 fl (9.4-12.4); MONOCYTES ABSOLUTE AUTO 0.7 K/mm3 (0.0-0.8); MONOCYTES PERCENT AUTO 8.6 % (0.0-8.0); NEUTROPHILS ABSOLUTE AUTO 5.5 K/mm3 (1.8-7.7); NEUTROPHILS PERCENT AUTO 70.9 % (41.0-71.0); NRBC ABSOLUTE 0.00 (0.00-0.02); NRBC PERCENT 0.0 % (0.0-0.2); PLATELET COUNT,PLT 229 K/mm3 (150-400); RED BLOOD CELL COUNT 4.46 M/mm3 (4.52-5.90); WHITE BLOOD CELL COUNT,WBC 7.69 K/mm3 (3.9-11.3)
[2025-01-30 14:58] LABS: INR 1.07
[2025-01-30 15:16] VITALS: BP 101/56; PULSE 77
[2025-01-30 15:26] LABS: A/G RATIO 1.2 (1-2); ALANINE AMINOTRANSFERASE,ALT 23.0 U/L (16-63); ASPARTATE AMNIOTRANSFERASE,AST 17.0 U/L (15-37); BILIRUBIN TOTAL 0.6 mg/dL (0.2-1.0); BLOOD UREA NITROGEN,BUN 27.0 mg/dL (7-18); CARBON DIOXIDE,CO2 31.0 mEq/L (21-32); CHLORIDE,CL 102.0 mEq/L (98-107); CREATINE KINASE,CK 46.0 U/L (39-308); CREATININE 1.4 mg/dL (0.7-1.3); EST CRCL DRUG DOSING (CG) 51.58 mL/min; ESTIMATED GFR 53.0 mL/min (>60); GLUCOSE RANDOM 108.0 mg/dL (70-99); POTASSIUM,K 3.8 mEq/L (3.5-5.1); PROTEIN TOTAL,TP 6.8 g/dl (6.4-8.2); SODIUM,NA 138.0 mEq/L (136-145); TROPONIN I HIGH SENSITIVITY 6.0 pg/mL (<=76)
== END 2025-01-30 16:34 | disposition home or self-care (01) ==
LOC: JD.ED 13:21
DX: R00.2 Palpitations (principal); I10 Essential (primary) hypertension; E78.00 Pure hypercholesterolemia, unspecified; Z79.01 Long term (current) use of anticoagulants; Z79.82 Long term (current) use of aspirin; Z79.899 Other long term (current) drug therapy
CPT/HCPCS: 36415; 71045; 71045-26; 80053; 82550; 83690; 83735; 83880; 84484; 85025; 85610; 93005; 99285